=== PATIENT | male | born 1985 | race Two or more races ===

== ENCOUNTER 2024-09-08 14:42 | Outpatient (CLI) | payer OTHER ==
[~2024-09-08 14:42] MED LIST: CYCL-1 PO; ONDA4TAB6 PO; SACC250C PO
== END 2024-09-08 23:59 | disposition home or self-care (01) ==
LOC: MRI 14:42
PROVIDERS: ATTEND Pediatrics Sports Medicine
DX: M76.891 Other specified enthesopathies of right lower limb, excluding foot (principal); M25.374 Other instability, right foot; M25.571 Pain in right ankle and joints of right foot
CPT/HCPCS: 73721